=== PATIENT | male | born 1955 | race Caucasian/White ===

== ENCOUNTER 2017-08-21 10:03 | Inpatient (IN) | payer OTHER ==
[2017-08-21 18:59] VITALS: BMI 16.6
--- NOTE | 2017-08-21 20:29 | HP ---
CIWA Score - CIWA Score Nausea/Vomitin-Mild Nausea/No Vomiting Muscle Tremors: 4-Moderate,w/Arms Extend Anxiety: 4-Mod. Anxious/Guarded Agitation: 4-Moderately Restless Paroxysmal Sweats: No Perspiration Orientation: 1-Uncertain about Date Tacttile Disturbances: 0-None Auditory Disturbances: 0-None Visual Disturbances: 0-None Headache: 2-Mild CIWA-Ar Total Score: 16 Admission ROS S - HPI Chief Complaint: Alcohol withdrawal symptoms Allergies/Adverse Reactions: Allergies Allergy/AdvReac Type Severity Reaction Status Date / Time No Known Allergies Allergy Verified 08/21/17 20:03 History of Present Illness: 62 years old female with a long history of alcohol dependence is seeking admission to detox. Patient has been to previous detox but does not remember the facility and reports insignificant period of sobriety. He denies past medical history. Reports suicide attempt but does not remember the year. He denies suicidal ideation at this time. Patient is on methadone 50 mg tablet oral at [facility]. LDM is today. Dose is to be confirmed by the nurse Exam Limitations: No Limitations - Ebola screening Have you traveled outside of the country in the last 21 days: No Have you had contact with anyone from an Ebola affected area: No Have you been sick,other than usual withdrawal symptoms: No Do you have a fever: No - Review of Systems Constitutional: Chills, Malaise, Changes in sleep EENT: reports: No Symptoms Reported Respiratory: reports: No Symptoms reported Cardiac: reports: No Symptoms Reported GI: reports: No Symptoms Reported : reports: No Symptoms Reported Musculoskeletal: reports: Back Pain, Joint Pain, Muscle Pain Integumentary: reports: Dryness Neuro: reports: Headache, Tremors Endocrine: reports: No Symptoms Reported Hematology: reports: Anemia Psychiatric: reports: Agitated, Anxious Other Systems: Reviewed and Negative Patient History - Patient Medical History Hx Anemia: No Hx Asthma: No Hx Chronic Obstructive Pulmonary Disease (COPD): No Hx Cancer: No Hx Cardiac Disorders: No Hx Congestive Heart Failure: No Hx Hypertension: No Hx Hypercholesterolemia: No Hx Pacemaker: No HX Cerebrovascular Accident: No Hx Seizures: No Hx Diabetes: No Hx Gastrointestinal Disorders: No Hx Liver Disease: No Hx Genitourinary Disorders: No Hx Sexually Transmitted Disorders: No Hx Renal Disease (ESRD): No Hx Thyroid Disease: No Hx Human Immunodeficiency Virus (HIV): No Hx Hepatitis C: No Hx Depression: Yes Hx Suicide Attempt: No Hx Bipolar Disorder: No Hx Schizophrenia: No - Patient Surgical History Past Surgical History: No Hx Neurologic Surgery: No Hx Cataract Extraction: No Hx Cardiac Surgery: No Hx Lung Surgery: No Hx Breast Surgery: No Hx Breast Biopsy: No Hx Abdominal Surgery: No Hx Appendectomy: No Hx Cholecystectomy: No Hx Genitourinary Surgery: No Hx Section: No Hx Orthopedic Surgery: No Anesthesia Reaction: No - PPD History Previous Implant?: Yes Documented Results: Negative w/o proof Implanted On Prior R Admission?: No PPD to be Administered?: Yes - Reproductive History Patient is a Female of Child Bearing Age (11 -55 yrs old): No (Male) - Smoking Cessation Smoking history: Current every day smoker Have you smoked in the past 12 months: Yes Aproximately how many cigarettes per day: 20 Hx Chewing Tobacco Use: No Initiated information on smoking cessation: Yes 'Breaking Loose' booklet given: 08/21/17 - Substance & Tx. History Hx Alcohol Use: Yes Hx Substance Use: Yes Substance Use Type: Alcohol Hx Substance Use Treatment: Yes (Patient does not remember name of the facility) - Substances Abused Alcohol Route: Oral Frequency: Daily Amount used: liquor- 3 pints, beer- 2 six packs Age of first use: 8 Date of Last Use: 08/21/17 Family Disease History - Family Disease History Family History: Denies Admission Physical Exam BHS - Vital Signs Vital Signs: Vital Signs - 24 hr 08/21/17 18:56 Temperature 98.3 F Pulse Rate 96 H Respiratory 17 Rate Blood Pressure 153/109 - Physical General Appearance: Yes: Moderate Distress, Severe Distress, Cachetic, Thin, Tremorous, Irritable, Sweating, Anxious HEENTM: Yes: Sinus Tenderness, Other (missing upper and lower dentures) Respiratory: Yes: Labored Respiration Neck: Yes: Supple Breast: Yes: Breast Exam Deferred Cardiology: Yes: Tachycardia Abdominal: Yes: Tenderness Genitourinary: Yes: Within Normal Limits Back: Yes: Decreased Range of Motion, Muscle Spasm Musculoskeletal: Yes: Back pain, Joint Stiffness, Muscle Pain Extremities: Yes: Tremors, Swelling (right ankle) Neurological: Yes: Alert, Depressed Affect Integumentary: Yes: Dry, Jaundice Lymphatic: Yes: Within Normal Limits - Diagnostic (1) Alcohol dependence with uncomplicated withdrawal Current Visit: Yes Status: Acute (2) Depression Current Visit: Yes Status: Acute Qualifiers: Major depression episode severity: unspecified (3) Methadone maintenance therapy patient Current Visit: Yes Status: Acute (4) Back arthralgia Current Visit: Yes Status: Acute (5) Chronic pain Current Visit: Yes Status: Acute Qualifiers: Chronic pain type: other chronic pain Qualified Code(s): G89.29 - Other chronic pain BHS Breath Alcohol Content Breath Alcohol Content: 0.133 Urine Drug Screen - Results Drug Screen Negative: No Urine Drug Screen Results: MTD-Methadone
--- NOTE | 2017-08-21 21:03 | PN ---
[facility] Progress Note Note: Patient has severe generalized aches and pain and reports right ankle pain and swelling. He appears severely dehydrated V/S B/P 153/109, HR 96, RR 17, T 98.3, BM! 16.6kg. Patient is being transferred to ER for evaluation. Endorsed to Dr. Iraheta.
[2017-08-21] MEDS ORDERED: MELATONIN 5 MG TABLETS PO PRN (22:00)
[2017-08-21] MEDS ORDERED: MAGNESIUM HYDROX 2400MG/30ML ORAL SUSPENSION 30 ML CUP PO PRN (22:51)
[2017-08-21] MEDS ORDERED: P-EPHED 60MG/TRIPROLIDI 2.5MG TABLET PO PRN (22:51)
[2017-08-21] MEDS ORDERED: MAGNESIUM CITRATE 300 ML BOTTLE PO PRN (22:51)
[2017-08-21] MEDS ORDERED: NICOTINE POLACRILEX 2 MG GUM BC PRN (22:51)
[2017-08-21] MEDS ORDERED: chlordiazePOXIDE HCL 25 MG CAPSULE PO PRN (22:51)
[2017-08-21] MEDS ORDERED: LOPERAMIDE HCL 2 MG CAPSULE PO PRN (22:51)
[2017-08-21] MEDS ORDERED: MAG HYDROX/AL HYDROX/SIMETH 30 ML UNIT-DOSE CUP PO PRN (22:51)
[2017-08-21] MEDS ORDERED: MENTHOL/PHENOL 1 EACH UD MM PRN (22:51)
[2017-08-21] MEDS ORDERED: guaiFENesin/D-METHORPHAN HB 10 ML UNIT-DOSE CUPS PO PRN (22:51)
[2017-08-21] MEDS: chlordiazePOXIDE HCL 25 MG CAPSULE PO SCH (23:58)
[2017-08-22] MEDS: chlordiazePOXIDE HCL 25 MG CAPSULE PO SCH ×4 (05:48→22:22)
[2017-08-22] MEDS ORDERED: METHADONE HCL 10 MG TABLET PO ONE (09:18)
[2017-08-22] MEDS ORDERED: METHADONE 40 MG, METHADONE 10 MG PO ONE (09:35)
[2017-08-22] MEDS ORDERED: METHADONE HCL 40 MG DISPERSABLE TABLET ONE (10:04)
[2017-08-22] MEDS ORDERED: METHADONE HCL 10 MG TABLET ONE (10:04)
[2017-08-22] MEDS: PRENATAL VITAMINS W/ FOLIC ACID TABLET (FP) PO SCH (10:10)
[2017-08-22] MEDS: NICOTINE 14 MG/24 HOURS TOPICAL PATCH TD SCH (10:10)
[2017-08-22] MEDS: IBUPROFEN 400 MG TABLET (FP) PO PRN ×2 (10:11→22:22)
--- NOTE | 2017-08-22 10:39 | PN ---
S CIWA - CIWA Score Nausea/Vomitin-No Nausea/No Vomiting Muscle Tremors: 4-Moderate,w/Arms Extend Anxiety: 5 Agitation: 3 Paroxysmal Sweats: 1-Minimal Palms Moist Orientation: 0-Oriented Tacttile Disturbances: 0-None Auditory Disturbances: 0-None Visual Disturbances: 0-None Headache: 0-None Present CIWA-Ar Total Score: 13 BHS Progress Note (SOAP) Subjective: PT APPEARS TIRED,SLIGHTLY FRAIL. C/O BACK AND LEG PAIN, TREMORS, FATIGUE. DRIED UP BLOODY BRUISE ON LEFT ELBOW DUE TO FALL, PER PT HISTORY. DENIES ANY OTHER BRUISE AT OTHER LOCATIONS. Objective: 08/22/17 10:38 Vital Signs - 24 hr 08/21/17 08/22/17 08/22/17 18:56 00:03 03:30 Temperature 98.3 F 97.9 F Pulse Rate 96 H 59 L Respiratory 17 18 18 Rate Blood Pressure 153/109 153/88 08/22/17 06:12 Temperature 98.2 F Pulse Rate 49 L Respiratory 16 Rate Blood Pressure 176/83 LABS PENDING Assessment: 08/22/17 10:39 WITHDRAWAL SX Plan: CONTINUE DETOX INCREASE PO FLUIDS DIETARY CONSULT MOTRIN PRN
[2017-08-22 10:40] LABS: CHLORIDE 98 mmol/L (98-107); HEMATOCRIT 42.9 % (35.4-49); HEMOGLOBIN 14.4 GM/dL (11.7-16.9); MCHC 33.5 g/dl (32.0-35.9); MEAN CELL VOLUME 98.4 fl (80-96); MEAN PLT VOLUME 8.8 fl (7.5-11.1); PLATELET COUNT 191 K/MM3 (134-434); POTASSIUM 4.2 mmol/L (3.5-5.1); RBC 4.36 M/mm3 (4.00-5.60); SODIUM 135 mmol/L (136-145); WHITE BLOOD COUNT 6.4 K/mm3 (4.0-10.0)
[2017-08-22 11:01] LABS: ALBUMIN 3.9 g/dl (3.4-5.0); ALK PHOS 98 U/L (45-117); ANION GAP 9 (8-16); BILIRUBIN,TOTAL 1.1 mg/dL (0.2-1.0); BLOOD UREA NITROGEN 18 mg/dL (7-18); CALCIUM 9.2 mg/dL (8.5-10.1); CO2 28 mmol/L (21-32); CREATININE 0.6 mg/dL (0.7-1.3); GLUCOSE,RANDOM 80 mg/dL (74-106); SGOT/AST 63 U/L (15-37); SGPT/ALT 43 U/L (12-78)
[2017-08-22] MEDS: BACITRACIN 0.9 GM PACKET TP SCH (12:56)
--- NOTE | 2017-08-22 13:09 | EKG ---
Test Reason : Blood Pressure : / mmHG Vent. Rate : 056 BPM Atrial Rate : 056 BPM P-R Int : 160 ms QRS Dur : 080 ms QT Int : 462 ms P-R-T Axes : 055 030 033 degrees QTc Int : 445 ms SINUS BRADYCARDIA POSSIBLE LEFT ATRIAL ENLARGEMENT LEFT VENTRICULAR HYPERTROPHY CANNOT RULE OUT SEPTAL INFARCT , AGE UNDETERMINED ABNORMAL ECG NO PREVIOUS ECGS AVAILABLE Confirmed by MD MATILDE, MACKENZIE ([id number]) on 08/22/2017 1:09:29 PM Referred By: Confirmed By:MACKENZIE CLAYTON MD
--- NOTE | 2017-08-22 17:06 | CONSULT ---
[facility] Psychiatric Consult - Data Date of interview: 08/22/17 Admission source: [facility] Identifying data: Patient is a 62 year old single male, father of ten, unemployed, homeless, and currently on food stamps. This is patient's first admission to detox at [facility]. Pt. admitted to for alcohol dependence. Substance Abuse History: Smoking Cessation. Smoking history: Current every day smoker. Have you smoked in the past 12 months: Yes. Aproximately how many cigarettes per day: 20. Hx Chewing Tobacco Use: No. Initiated information on smoking cessation: Yes. 'Breaking Loose' booklet given: 08/21/17. - Substance & Tx. History. Hx Alcohol Use: Yes. Hx Substance Use: Yes. Substance Use Type : Alcohol. Hx Substance Use Treatment: Yes (Patient does not remember name of the facility). - Substances Abused. Alcohol. Route: Oral. Frequency: Daily. Amount used: liquor- 3 pints, beer- 2 six packs. Age of first use: 8. Date of Last Use: 08/21/17 Medical History: Chronic pain Psychiatric History: Patient denies h/o psychiatric hospitalizations, and outpatient care. Pt. reports one suicide attempt approximately five years ago by hanging himself. Pt. denies being admitted to a psychiatric unit. Pt. currently denies suicidal and homicidal ideation. Physical/Sexual Abuse/Trauma History: Denies. Mental Status Exam - Mental Status Exam Alert and Oriented to: Time, Place, Person Cognitive Function: Good Patient Appearance: Unkempt, Disheveled Mood: Euthymic Affect: Mood Congruent Patient Behavior: Appropriate, Cooperative Speech Pattern: Appropriate Voice Loudness: Moderately Soft/Quiet Thought Process: Goal Oriented Thought Disorder: Not Present Hallucinations: Denies Suicidal Ideation: Denies Homicidal Ideation: Denies Insight/Judgement: Poor Sleep: Poorly Appetite: Fair Muscle strength/Tone: Normal Gait/Station: Normal Psychiatric Findings - Problem List (Shiro 1, 2,3) (1) Alcohol dependence with uncomplicated withdrawal Current Visit: Yes Status: Acute (2) Back arthralgia Current Visit: Yes Status: Acute (3) Chronic pain Current Visit: Yes Status: Chronic Qualifiers: Chronic pain type: other chronic pain Qualified Code(s): G89.29 - Other chronic pain (4) Methadone maintenance therapy patient Current Visit: Yes Status: Chronic (5) Alcohol-induced mood disorder Current Visit: Yes Status: Acute (6) Insomnia Current Visit: Yes Status: Acute - Initial Treatment Plan Initial Treatment Plan: Psychoeducation provided. Detoxification in progress. Pt. informed that Melatonin 5mg is ordered for insomnia.
[2017-08-22 18:47] LABS: URINE APPEARANCE CLEAR; URINE BILIRUBIN NEGATIVE (<2.0 mg/dL); URINE COLOR AMBER; URINE GLUCOSE (UA) NEGATIVE (NEGATIVE); URINE KETONE NEGATIVE (NEGATIVE); URINE LEUK ESTERASE TRACE (NEGATIVE); URINE NITRITE NEGATIVE (NEGATIVE); URINE PROTEIN NEGATIVE (NEGATIVE); URINE UROBILINOGEN 4.0 E.U/dl mg/dL (0.2-1.0)
[2017-08-22 19:01] LABS: EPI CELLS RARE /HPF (FEW); URINE HYALINE CAST 41 /lpf; URINE MUCUS RARE
[2017-08-22] MEDS: THIAMINE HCL 100 MG TABLET (FP) PO SCH (22:22)
[2017-08-23] MEDS: ACETAMINOPHEN 325 MG TABLET (FP) PO PRN ×3 (02:53→20:41)
[2017-08-23] MEDS: chlordiazePOXIDE HCL 25 MG CAPSULE PO SCH ×3 (06:00→17:45)
[2017-08-23] MEDS ORDERED: METHADONE HCL 10 MG TABLET PO SCH (06:00)
[2017-08-23] MEDS: IBUPROFEN 400 MG TABLET (FP) PO PRN ×2 (06:48→12:57)
[2017-08-23] MEDS ORDERED: METHADONE HCL 10 MG TABLET ONE (08:20)
[2017-08-23] MEDS ORDERED: METHADONE HCL 40 MG DISPERSABLE TABLET ONE (08:20)
[2017-08-23] MEDS: METHADONE 40 MG, METHADONE 10 MG PO SCH (08:22)
[2017-08-23] MEDS: BACITRACIN 0.9 GM PACKET TP SCH (10:14)
[2017-08-23] MEDS: PRENATAL VITAMINS W/ FOLIC ACID TABLET (FP) PO SCH (10:14)
[2017-08-23] MEDS: NICOTINE 14 MG/24 HOURS TOPICAL PATCH TD SCH (10:14)
[2017-08-23] MEDS ORDERED: NAPROXEN 375 MG TABLET (FP) PO ONE (15:29)
--- NOTE | 2017-08-23 18:16 | PN ---
[facility] CIWA - CIWA Score Nausea/Vomitin-No Nausea/No Vomiting Muscle Tremors: 3 Anxiety: 4-Mod. Anxious/Guarded Agitation: 1-Slight > Activity Paroxysmal Sweats: 3 Orientation: 2-Disoriented Date<2 days Tacttile Disturbances: 0-None Auditory Disturbances: 0-None Visual Disturbances: 0-None Headache: 0-None Present CIWA-Ar Total Score: 13 S Progress Note (SOAP) Subjective: Sweating, Body Aches, Tremors, Interrupted Sleep. Objective: PATIENT A & O X 2 (UNCERTAIN ABOUT CURRENT DAY / DATE). PATIENT OBSERVED AMBULATING ON UNIT WITH ASSISTANCE OF A CANE. NO ACUTE DISTRESS. 08/23/17 18:15 Vital Signs Temperature 98.0 F 08/23/17 13:19 Pulse Rate 92 H 08/23/17 13:19 Respiratory Rate 20 08/23/17 13:19 Blood Pressure 134/88 08/23/17 13:19 O2 Sat by Pulse Oximetry (%) Laboratory Tests 08/22/17 08/22/17 08/22/17 08:15 08:15 08:15 WBC 6.4 RBC 4.36 Hgb 14.4 Hct 42.9 MCV 98.4 H MCH 33.0 MCHC 33.5 RDW 14.0 Plt Count 191 MPV 8.8 Sodium 135 L Potassium 4.2 Chloride 98 Carbon Dioxide 28 Anion Gap 9 BUN 18 Creatinine 0.6 L Creat Clearance w eGFR > 60 Random Glucose 80 Calcium 9.2 Total Bilirubin 1.1 H AST 63 H ALT 43 Alkaline Phosphatase 98 Total Protein 8.0 Albumin 3.9 Urine Color Urine Appearance Urine pH Ur Specific [place] Urine Protein Urine Glucose (UA) Urine Ketones Urine Blood Urine Nitrite Urine Bilirubin Urine Urobilinogen Ur Leukocyte Esterase Urine WBC (Auto) Urine RBC (Auto) Ur Epithelial Cells Hyaline Casts Urine Mucus RPR Titer Nonreactive 08/22/17 16:22 WBC RBC Hgb Hct MCV MCH MCHC RDW Plt Count MPV Sodium Potassium Chloride Carbon Dioxide Anion Gap BUN Creatinine Creat Clearance w eGFR Random Glucose Calcium Total Bilirubin AST ALT Alkaline Phosphatase Total Protein Albumin Urine Color [place] Urine Appearance Clear Urine pH 5.0 Ur Specific [place] 1.027 Urine Protein Negative Urine Glucose (UA) Negative Urine Ketones Negative Urine Blood Negative Urine Nitrite Negative Urine Bilirubin Negative Urine Urobilinogen 4.0 e.u/dl Ur Leukocyte Esterase Trace Urine WBC (Auto) 1 Urine RBC (Auto) 5 Ur Epithelial Cells Rare Hyaline Casts 41 Urine Mucus Rare RPR Titer LABS NOTED. Assessment: 08/23/17 18:15 WITHDRAWAL SYMPTOMS. Plan: CONTINUE DETOX. INCREASE DAILY PO FLUID INTAKE.
[2017-08-23] MEDS: NAPROXEN 375 MG TABLET (FP) PO SCH (22:37)
[2017-08-23] MEDS: THIAMINE HCL 100 MG TABLET (FP) PO SCH (22:37)
[2017-08-23] MEDS: chlordiazePOXIDE 5 MG CAPSULE PO SCH (22:38)
[2017-08-24] MEDS ORDERED: METHADONE HCL 10 MG TABLET ONE (04:14)
[2017-08-24] MEDS ORDERED: METHADONE HCL 40 MG DISPERSABLE TABLET ONE (04:14)
[2017-08-24] MEDS: chlordiazePOXIDE 5 MG CAPSULE PO SCH ×3 (04:19→18:37)
[2017-08-24] MEDS: ACETAMINOPHEN 325 MG TABLET (FP) PO PRN (04:20)
[2017-08-24] MEDS: METHADONE 40 MG, METHADONE 10 MG PO SCH (05:52)
[2017-08-24] MEDS: PRENATAL VITAMINS W/ FOLIC ACID TABLET (FP) PO SCH (10:19)
[2017-08-24] MEDS: BACITRACIN 0.9 GM PACKET TP SCH (10:19)
[2017-08-24] MEDS: NICOTINE 14 MG/24 HOURS TOPICAL PATCH TD SCH (10:20)
[2017-08-24] MEDS: NAPROXEN 375 MG TABLET (FP) PO SCH ×2 (10:20→22:07)
--- NOTE | 2017-08-24 11:06 | PN ---
BHS Progress Note (SOAP) Subjective: C/O FATIGUE, BACK PAIN. OOB AMBULATING WITH STEADY GAIT BUT SLOWLY. Objective: 08/24/17 11:04 Vital Signs 08/24/17 08/24/17 08/24/17 04:20 06:15 09:14 Temperature 97.6 F 97.7 F 96.8 F L Pulse Rate 92 H 70 78 Respiratory 16 18 18 Rate Blood Pressure 156/104 160/90 151/103 Laboratory Tests 08/22/17 08/22/17 08/22/17 08:15 08:15 08:15 WBC 6.4 RBC 4.36 Hgb 14.4 Hct 42.9 MCV 98.4 H MCH 33.0 MCHC 33.5 RDW 14.0 Plt Count 191 MPV 8.8 Sodium 135 L Potassium 4.2 Chloride 98 Carbon Dioxide 28 Anion Gap 9 BUN 18 Creatinine 0.6 L Creat Clearance w eGFR > 60 Random Glucose 80 Calcium 9.2 Total Bilirubin 1.1 H AST 63 H ALT 43 Alkaline Phosphatase 98 Total Protein 8.0 Albumin 3.9 Urine Color Urine Appearance Urine pH Ur Specific [place] Urine Protein Urine Glucose (UA) Urine Ketones Urine Blood Urine Nitrite Urine Bilirubin Urine Urobilinogen Ur Leukocyte Esterase Urine WBC (Auto) Urine RBC (Auto) Ur Epithelial Cells Hyaline Casts Urine Mucus RPR Titer Nonreactive 08/22/17 16:22 WBC RBC Hgb Hct MCV MCH MCHC RDW Plt Count MPV Sodium Potassium Chloride Carbon Dioxide Anion Gap BUN Creatinine Creat Clearance w eGFR Random Glucose Calcium Total Bilirubin AST ALT Alkaline Phosphatase Total Protein Albumin Urine Color [place] Urine Appearance Clear Urine pH 5.0 Ur Specific [place] 1.027 Urine Protein Negative Urine Glucose (UA) Negative Urine Ketones Negative Urine Blood Negative Urine Nitrite Negative Urine Bilirubin Negative Urine Urobilinogen 4.0 e.u/dl Ur Leukocyte Esterase Trace Urine WBC (Auto) 1 Urine RBC (Auto) 5 Ur Epithelial Cells Rare Hyaline Casts 41 Urine Mucus Rare RPR Titer Assessment: 08/24/17 11:05 WITHDRAWAL SX Plan: CONTINUE DETOX CONTINUE WITH INCREASE PO FLUIDS
--- NOTE | 2017-08-24 19:18 | PN ---
S Progress Note Note: Pt with high BP this amaris: 173/89. Pt has had consistently high BP for the last few days. Pt states he has never taken BP meds. Will start lisinopril 10mg qhs. follow BP Vital Signs (72 hours) 08/22/17 08/22/17 08/22/17 00:03 03:30 06:12 Temperature 97.9 F 98.2 F Pulse Rate 59 L 49 L Respiratory 18 18 16 Rate Blood Pressure 153/88 176/83 08/22/17 08/22/17 08/22/17 10:40 13:38 17:29 Temperature 98.6 F 97.4 F L 96.7 F L Pulse Rate 55 L 74 66 Respiratory 20 18 18 Rate Blood Pressure 116/74 132/89 146/92 08/22/17 08/23/17 08/23/17 22:13 00:30 03:30 Temperature 97.4 F L Pulse Rate 74 Respiratory 19 18 18 Rate Blood Pressure 136/85 08/23/17 08/23/17 08/23/17 06:26 09:16 13:19 Temperature 97.3 F L 98.5 F 98.0 F Pulse Rate 63 87 92 H Respiratory 16 18 20 Rate Blood Pressure 159/94 138/89 134/88 08/23/17 08/23/17 08/24/17 19:17 22:00 00:30 Temperature 96.3 F L 97.3 F L Pulse Rate 66 81 Respiratory 20 20 18 Rate Blood Pressure 144/84 140/89 08/24/17 08/24/17 08/24/17 04:20 06:15 09:14 Temperature 97.6 F 97.7 F 96.8 F L Pulse Rate 92 H 70 78 Respiratory 16 18 18 Rate Blood Pressure 156/104 160/90 151/103 08/24/17 08/24/17 13:20 18:14 Temperature 96.8 F L 96.6 F L Pulse Rate 78 67 Respiratory 18 16 Rate Blood Pressure 140/84 173/89
[2017-08-24] MEDS ORDERED: LISINOPRIL 10 MG TABLET (FP) PO SCH (22:00)
[2017-08-24] MEDS ORDERED: LISINOPRIL 10 MG TABLET (FP) PO ONE (22:00)
[2017-08-24] MEDS: THIAMINE HCL 100 MG TABLET (FP) PO SCH (22:07)
[2017-08-24] MEDS: chlordiazePOXIDE HCL 10 MG CAPSULE PO SCH (22:07)
[2017-08-25] MEDS ORDERED: METHADONE HCL 10 MG TABLET ONE (03:54)
[2017-08-25] MEDS ORDERED: METHADONE HCL 40 MG DISPERSABLE TABLET ONE (03:55)
[2017-08-25] MEDS: chlordiazePOXIDE HCL 10 MG CAPSULE PO SCH (06:02)
[2017-08-25] MEDS: METHADONE 40 MG, METHADONE 10 MG PO SCH (06:03)
[2017-08-25] MEDS: ACETAMINOPHEN 325 MG TABLET (FP) PO PRN (06:03)
[2017-08-25 09:21] VITALS: BP 123/79; PULSE 83; TEMP 95.3
--- NOTE | 2017-08-25 11:38 | PN ---
BHS Progress Note (SOAP) Subjective: DETOX COMPLETED. ALERT O X3. OOB AMBULATING WITH STEADY GAIT. PT REPORTS HE IS GOING BACK TO HIS CLINIC AT [facility] TODAY. REPORTS PRIMARY CARE AT [facility] AND HOME [facility](PT DID NOT MENTION WHICH [facility]). PT WAS STARTED ON LISINOPRIL 10 MG PO DAILY YESTERDAY. 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 Objective: 08/25/17 11:38 Vital Signs 08/25/17 08/25/17 06:36 09:20 Temperature 97.8 F 95.3 F L Pulse Rate 63 83 Respiratory 16 16 Rate Blood Pressure 162/83 123/79 Laboratory Tests 08/22/17 08/22/17 08/22/17 08:15 08:15 08:15 WBC 6.4 RBC 4.36 Hgb 14.4 Hct 42.9 MCV 98.4 H MCH 33.0 MCHC 33.5 RDW 14.0 Plt Count 191 MPV 8.8 Sodium 135 L Potassium 4.2 Chloride 98 Carbon Dioxide 28 Anion Gap 9 BUN 18 Creatinine 0.6 L Creat Clearance w eGFR > 60 Random Glucose 80 Calcium 9.2 Total Bilirubin 1.1 H AST 63 H ALT 43 Alkaline Phosphatase 98 Total Protein 8.0 Albumin 3.9 Urine Color Urine Appearance Urine pH Ur Specific [place] Urine Protein Urine Glucose (UA) Urine Ketones Urine Blood Urine Nitrite Urine Bilirubin Urine Urobilinogen Ur Leukocyte Esterase Urine WBC (Auto) Urine RBC (Auto) Ur Epithelial Cells Hyaline Casts Urine Mucus RPR Titer Nonreactive 08/22/17 16:22 WBC RBC Hgb Hct MCV MCH MCHC RDW Plt Count MPV Sodium Potassium Chloride Carbon Dioxide Anion Gap BUN Creatinine Creat Clearance w eGFR Random Glucose Calcium Total Bilirubin AST ALT Alkaline Phosphatase Total Protein Albumin Urine Color [place] Urine Appearance Clear Urine pH 5.0 Ur Specific [place] 1.027 Urine Protein Negative Urine Glucose (UA) Negative Urine Ketones Negative Urine Blood Negative Urine Nitrite Negative Urine Bilirubin Negative Urine Urobilinogen 4.0 e.u/dl Ur Leukocyte Esterase Trace Urine WBC (Auto) 1 Urine RBC (Auto) 5 Ur Epithelial Cells Rare Hyaline Casts 41 Urine Mucus Rare RPR Titer Assessment: 08/25/17 11:39 MEDICALLY STABLE. Plan: D/C PT TODAY FOLLOW UP WITH PRIMARY CARE FOR MEDICAL MANAGEMENT.
--- NOTE | 2017-08-25 11:59 | DS ---
[facility] Detox Discharge Summary Admission Date: 08/21/17 Discharge Date: 08/25/17 - Physical Exam Results Vital Signs: Vital Signs Temperature 95.3 F L 08/25/17 09:20 Pulse Rate 83 08/25/17 09:20 Respiratory Rate 16 08/25/17 09:20 Blood Pressure 123/79 08/25/17 09:20 O2 Sat by Pulse Oximetry (%) - Treatment Hospital Course: Detox Protocol Followed, Detoxed Safely, Responded well, Discharged Condition Good - Medication Discharge Medications: Ambulatory Orders Lisinopril [Prinivil] 10 mg PO DAILY #30 tablet 08/25/17 - Diagnosis (1) Alcohol dependence with uncomplicated withdrawal Current Visit: Yes Status: Acute (2) Back arthralgia Current Visit: Yes Status: Acute (3) Chronic pain Current Visit: Yes Status: Chronic Qualifiers: Chronic pain type: other chronic pain Qualified Code(s): G89.29 - Other chronic pain (4) Methadone maintenance therapy patient Current Visit: Yes Status: Chronic (5) Traumatic ecchymosis of left elbow Current Visit: Yes Status: Acute Qualifiers: Encounter type: subsequent encounter Qualified Code(s): S50.02XD - Contusion of left elbow, subsequent encounter
== END 2017-08-25 09:55 | disposition home or self-care (01) | DRG 775 ==
LOC: YASAS 10:03 → UNDOADMIN 20:13 → Y6N 20:13 → Y3N 23:16
PROVIDERS: ADMIT Surgery; ATTEND Surgery
PROC: HZ2ZZZZ Detoxification Services for Substance Abuse Treatment (ICD-10-PCS; principal; 2017-08-21)
DX: F10.230 Alcohol dependence with withdrawal, uncomplicated (principal); F10.24 Alcohol dependence with alcohol-induced mood disorder; F32.9 Major depressive disorder, single episode, unspecified; M54.9 Dorsalgia, unspecified; G89.29 Other chronic pain; G47.00 Insomnia, unspecified
CPT/HCPCS: 36415; 80053; 81003; 81015; 85027; 86593; 93005; 93010